=== PATIENT | female | born 1985 ===

== ENCOUNTER 2021-09-07 14:50 | Emergency (ER) | payer BC ==
[2021-09-07] MEDS ORDERED: Sodium Chloride 0.9% 1,000 ML IV SCH (18:00)
[2021-09-07] MEDS ORDERED: Sodium Chloride 0.9% 250 ML IV SCH (18:00)
[2021-09-07 18:32] LABS: HEMOGLOBIN A1C 5.7 %
[2021-09-07 18:46] LABS: ESTIMATED GFR 98 mL/min (>60)
== END 2021-09-07 19:55 | disposition home or self-care (01) ==
LOC: JD.ED 14:50
DX: R42 Dizziness and giddiness (principal); R53.83 Other fatigue
CPT/HCPCS: 36415; 71045; 80053; 81001; 83036; 83735; 84443; 85025; 86140; 93005; 96360; 96361; 99284; J7030